=== PATIENT | female | born 1970 | race Caucasian/White ===

== ENCOUNTER 2016-09-24 15:18 | Emergency (ER) | payer OTHER ==
[~2016-09-24] VITALS: Ht 160 cm; Wt 100.0 kg
[2016-09-24 15:21] VITALS: BP 164/78; PULSE 58; RESP 20; TEMP 97.8; O2SAT 97
== END 2016-09-24 15:24 | disposition left against medical advice (07) ==
LOC: NED 15:18
DX: R10.9 Unspecified abdominal pain (principal)
CPT/HCPCS: 99281